=== PATIENT | male | born 1985 | race Two or more races ===

== ENCOUNTER 2019-07-21 18:32 | Emergency (ER) | payer OTHER ==
[~2019-07-21] VITALS: Ht 172.7 cm; Wt 104.0 kg
[2019-07-21] MEDS ORDERED: KETOROLAC 60MG/2ML VIAL IM ONE (18:45)
[2019-07-21] MEDS ORDERED: HYDROCODONE/ACETAMINOPHEN 5/325MG TABLET PO ONE ×2 (19:00→23:30)
[2019-07-22 03:00] VITALS: BP 133/70
== END 2019-07-22 03:25 | disposition short-term general hospital (02) ==
LOC: ER 19:53
DX: S20.229A Contusion of unspecified back wall of thorax, initial encounter (principal); M62.838 Other muscle spasm; V43.52XA Car driver injured in collision with other type car in traffic accident, initial encounter; Y93.9 Activity, unspecified; Y92.410 Unspecified street and highway as the place of occurrence of the external cause
CPT/HCPCS: 72128; 96372; 99285; J1885